=== PATIENT | female | born 1945 | race Caucasian/White ===

== ENCOUNTER 2021-12-10 15:07 | Observation (INO) ==
[2021-12-10 15:46] LABS: Basophils # 0.1 10*3/uL (0.0-0.2); Basophils % 0.6 % (0.0-0.8); Eosinophils # 0.1 10*3/uL (0.0-0.87); Eosinophils % 1.1 % (0.00-10.9); Hematocrit 39.3 VOL% (35.7-47.0); Hemoglobin 12.3 GM/DL (12.0-16.0); Immature Granulocytes % 0.4 %; Immature Granulocytes Absolute 0.04 #; Lymphocytes # 1.8 10*3/uL (1.4-4.0); Lymphocytes % 16.1 % (21.3-54.2); Mean Corpuscular HGB Conc 31.3 GM/DL (32-36); Mean Platelet Volume 10.4 FL (9.6-12.0); Monocytes % 9.1 % (1.7-12.7); Neutrophils % 72.7 % (38.7-73.9); Platelet Count 239 T/CUMM (130-400); Red Blood Count 4.68 MC/CUMM (3.8-5.5); Red Cell Distribution Width 14.6 % (9.3-17.3); White Blood Count 11.3 T/CUMM (4-12)
[2021-12-10 15:56] LABS: PT Patient Result 10.7 SECS (10.5-12.0); Partial Thromboplastin Time 26.9 SECS (23.8-32.1)
[2021-12-10] MEDS ORDERED: ACETAMINOPHEN 500 MG TABLET PO STA (16:53)
[2021-12-10] MEDS ORDERED: hydrALAZINE 20 MG/1 ML VIAL IV STA (16:53)
[2021-12-10 17:00] LABS: Urine Appearance Clear (Clear); Urine Color Yellow (Yellow)
[2021-12-10 17:01] LABS: Bilirubin,Urine Negative (Negative); Blood, Urine Moderate mg/dL (Negative); Glucose,Urine (UA) Negative (Negative); Ketones,Urine Negative (Negative); Nitrite,Urine Negative (Negative); Protein,Urine Negative (Negative); Urine Specific Gravity 1.015 (1.001-1.035); Urine Urobilinogen 0.2 eU/dL (<2.0); Urine pH 5.5 (4.5-8.0)
[2021-12-10 17:03] LABS: Bacteria,Urine Many /HPF (Few); Mucus,Urine Occasional /LPF (Occasional); RBC,Urine 27 /HPF (0-4)
[2021-12-10 17:05] LABS: Barbiturates Screen,Urine Negative (Negative); Benzodiazepines Screen,Urine Negative (Negative); Cannabinoid Screen,Urine Negative (Negative); Opiate Screen,Urine Negative (Negative); Phencyclidine Screen,Urine Negative (Negative)
[2021-12-10 18:28] LABS: Alanine Aminotransferase 20 U/L (13-56); Albumin 3.3 G/DL (3.4-5.0); Alkaline Phosphatase 91 U/L (45-117); Aspartate Amino Transferase 24 U/L (0-37); Bilirubin,Total < 0.39 MG/DL (0.20-1.00); Blood Urea Nitrogen 34 MG/DL (7-18); Carbon Dioxide 25 MMOL/L (21-32); Chloride 108 MMOL/L (98-107); Glucose 105 MG/DL (74-106); Osmolality,Calculated 288.3 MOS/KG (273-304); Potassium 3.9 MMOL/L (3.5-5.1); Sodium 141 MMOL/L (136-145); Total Protein 7.1 G/DL (6.4-8.2)
[2021-12-10] MEDS ORDERED: GLUCAGON 1 MG VIAL IM PRN ×2 (19:31)
[2021-12-10] MEDS ORDERED: ONDANSETRON 4 MG/2 ML VIAL IV PRN (19:31)
[2021-12-10] MEDS ORDERED: hydrALAZINE 20 MG/1 ML VIAL IV PRN (19:31)
[2021-12-10] MEDS ORDERED: DEXTROSE 10% 250 ML BAG IV PRN ×2 (19:49→19:51)
[2021-12-10] MEDS: ENOXAPARIN 30 MG/0.3 ML SYRINGE SUBCUT SCH (20:10)
[2021-12-10] MEDS: ATORVASTATIN 40 MG TABLET PO SCH (21:35)
[2021-12-10] MEDS: lisinopriL 20 MG TABLET PO SCH (21:36)
[2021-12-10] MEDS: ASPIRIN EC 81 MG TABLET PO SCH (21:36)
[2021-12-10] MEDS: INSULIN LISPRO 100 UNIT/ML SUBCUT SCH (21:38)
[2021-12-10] MEDS ORDERED: SODIUM CHLORIDE 0.9% 1,000 ML IV ONE (23:42)
[2021-12-11] MEDS: ACETAMINOPHEN 325 MG TABLET PO PRN ×2 (02:44→11:22)
[2021-12-11 04:52] LABS: Basophils % 0.5 % (0.0-0.8); Eosinophils % 0.2 % (0.00-10.9); Hematocrit 36.5 VOL% (35.7-47.0); Hemoglobin 11.5 GM/DL (12.0-16.0); Immature Granulocytes % 0.3 %; Immature Granulocytes Absolute 0.03 #; Lymphocytes # 1.1 10*3/uL (1.4-4.0); Lymphocytes % 12.7 % (21.3-54.2); Mean Corpuscular HGB Conc 31.5 GM/DL (32-36); Mean Corpuscular Volume 84.3 FL (87-102); Mean Platelet Volume 10.5 FL (9.6-12.0); Monocytes # 0.7 10*3/uL (0.11-0.8); Monocytes % 8.1 % (1.7-12.7); Neutrophils % 78.2 % (38.7-73.9); Platelet Count 199 T/CUMM (130-400); Red Blood Count 4.33 MC/CUMM (3.8-5.5); Red Cell Distribution Width 14.6 % (9.3-17.3); White Blood Count 8.7 T/CUMM (4-12)
[2021-12-11 05:21] LABS: Bilirubin,Total 0.5 MG/DL (0.20-1.00); Calcium 8.4 MG/DL (8.5-10.1); Osmolality,Calculated 290.8 MOS/KG (273-304); Potassium 4.1 MMOL/L (3.5-5.1); Risk Ratio 2.31; Thyroid Stimulating Hormone 1.07 uIU/ml (0.358-3.74); Total Protein 6.2 G/DL (6.4-8.2); VLDL Cholesterol 19.8 MG/DL
[2021-12-11] MEDS: PANTOPRAZOLE 40 MG TABLET PO SCH (05:44)
[2021-12-11] MEDS: LEVOTHYROXINE 50 MCG TABLET PO SCH (05:44)
[2021-12-11] MEDS: METOPROLOL SUCCINATE XL 50 MG TABLET PO SCH (08:26)
[2021-12-11] MEDS: lisinopriL 20 MG TABLET PO SCH ×2 (08:27→21:10)
[2021-12-11] MEDS: metFORMIN 500 MG TABLET PO SCH ×2 (08:49→16:54)
[2021-12-11] MEDS: INSULIN LISPRO 100 UNIT/ML SUBCUT SCH ×4 (09:15→22:12)
[2021-12-11] MEDS ORDERED: MAGNESIUM SULF RIDER 2 GM/50 ML PREMIX IV ONE (13:17)
[2021-12-11] MEDS: ENOXAPARIN 30 MG/0.3 ML SYRINGE SUBCUT SCH (21:10)
[2021-12-11] MEDS: ASPIRIN EC 81 MG TABLET PO SCH (21:10)
[2021-12-11] MEDS: ATORVASTATIN 40 MG TABLET PO SCH (21:10)
[2021-12-12] MEDS: LEVOTHYROXINE 50 MCG TABLET PO SCH (05:43)
[2021-12-12] MEDS: PANTOPRAZOLE 40 MG TABLET PO SCH (05:43)
[2021-12-12 08:11] VITALS: BP 143/60
[2021-12-12] MEDS: INSULIN LISPRO 100 UNIT/ML SUBCUT SCH (09:00)
[2021-12-12] MEDS ORDERED: SERTRALINE 25 MG TABLET PO ONE (09:34)
[2021-12-12] MEDS: metFORMIN 500 MG TABLET PO SCH (09:36)
[2021-12-12] MEDS: METOPROLOL SUCCINATE XL 50 MG TABLET PO SCH (09:36)
[2021-12-12] MEDS: lisinopriL 20 MG TABLET PO SCH (09:36)
[2021-12-12] MEDS ORDERED: SERTRALINE 25 MG TABLET PO SCH (21:00)
== END 2021-12-12 11:51 | disposition home health service (06) ==
LOC: N.TELEN 15:07 → N.ED 15:07 → N.TELEN 12-11 01:46
PROVIDERS: ADMIT Internal Medicine; ATTEND Internal Medicine